=== PATIENT | female | born 1945 | race Caucasian/White ===

== ENCOUNTER 2017-11-05 16:36 | Emergency (ER) | payer OTHER ==
[~2017-11-05] VITALS: Ht 167.6 cm; Wt 163.3 kg
[~2017-11-05 16:36] MED LIST: CITA10TA9 PO; LISI1TAB13 PO
--- NOTE | 2017-11-05 16:45 | NUR ---
72 yo female bib ra. patient is alert and oriented, states she had an anxiety attack, became dizzy then called 911. patient states she is a little dizzy at this time, still a little anxious. patient ambulated to er bed with steady gait, skin warm and dry, resp even and unlabored. awaiting orders from provider
[2017-11-05] MEDS ORDERED: LORAZEPAM INJ 2 MG/ML VIAL ONE (16:51)
[2017-11-05] MEDS ORDERED: CLONIDINE HCL 0.1 MG TABLET ONE (16:52)
[2017-11-05] MEDS ORDERED: CLONIDINE HCL 0.1 MG TABLET PO ONE (17:00)
[2017-11-05] MEDS ORDERED: LORAZEPAM INJ 2 MG/ML VIAL IV ONE (17:00)
[2017-11-05 17:05] LABS: BASOPHILS # (AUTO) 0.1 /CMM (0.0-0.2); BASOPHILS % (AUTO) 0.7 % (0.0-2.0); EOSINOPHILS % (AUTO) 3.6 % (0.0-6.0); HEMATOCRIT 42 % (33-45); HEMOGLOBIN 13.9 g/dL (11.5-14.8); LYMPHOCYTES # (AUTO) 2.6 /CMM (0.8-4.8); LYMPHOCYTES % (AUTO) 34.3 % (20.0-44.0); MEAN CORPUSCULAR HEMOGLOBIN 28 PG (26.0-33.0); MEAN CORPUSCULAR HGB CONC 34 g/dl (31.0-36.0); MEAN CORPUSCULAR VOLUME 85 fL (82-100); MONOCYTES # (AUTO) 0.5 /CMM (0.1-1.30); MONOCYTES % (AUTO) 6.1 % (2.0-12.0); NEUTROPHILS % (AUTO) 55.3 % (43.0-81.0); PLATELET COUNT (AUTO) 256 /CMM (150-450); RDW COEFFICIENT OF VARIATION 12.7 (11.5-15.0); RED BLOOD CELL COUNT(AUTO) 4.91 MIL/uL (4.0-5.2); WHITE BLOOD COUNT (AUTO) 7.4 K/uL (4.3-11.0)
--- NOTE | 2017-11-05 17:06 | NUR ---
20g right fa iv started, blood sample obtained and sent to lab. medicated pt as ordered
[2017-11-05 17:16] LABS: CARBON DIOXIDE 27 mmol/L (21-32); CHLORIDE 106 mmol/L (98-107); CREATININE 0.8 mg/dL (0.6-1.3); GLUCOSE 119 mg/dL (74-106); POTASSIUM 4.2 mmol/L (3.5-5.1); SODIUM SERUM 139 mmol/L (136-145); UREA NITROGEN, BLOOD 11 mg/dL (7-18)
[2017-11-05 17:19] LABS: INR 1.04 (0.85-1.15)
[2017-11-05 17:24] LABS: TROPONIN I < 0.017 ng/mL (0.00-0.056)
--- NOTE | 2017-11-05 18:03 | NUR ---
Patient discharged to home in stable condition. Written and verbal after care instructions given. Patient verbalizes understanding of instruction.IV removed. Catheter intact and site benign. Pressure and 4x4 applied to site. No bleeding noted. pt ambulatory with a steady gait VITAL SIGNS WITHIN NORMAL LIMITS.
[2017-11-05 18:04] VITALS: BP 153/78
== END 2017-11-05 18:04 | disposition home or self-care (01) ==
LOC: ER 16:37
DX: I10 Essential (primary) hypertension (principal); F41.9 Anxiety disorder, unspecified; Z90.710 Acquired absence of both cervix and uterus
CPT/HCPCS: 36415; 71045; 80048; 84484; 85025; 85730; 93005; 96374; 99285; A4606; J2060; Z7610

== ENCOUNTER 2017-12-09 23:17 | Emergency (ER) | payer OTHER ==
[~2017-12-09] VITALS: Ht 154.9 cm; Wt 68.0 kg
[2017-12-09] MEDS ORDERED: hydrALAZINE HCL IV 20 MG VIAL IV ONE (23:30)
[2017-12-09] MEDS ORDERED: hydrALAZINE HCL IV 20 MG VIAL ONE (23:32)
--- NOTE | 2017-12-09 23:35 | NUR ---
Pt BIBRA C/O OF HBP AFTER NOT TAKING ATENOLOL AT HOME. PER Pt STATEMENT DID TAKE ATIVAN 0.5MG STAMP COLLECTOR. Pt IS A/OX4, VERBAL, ABLE TO MAKE NEEDS KNOWN. NO S/S OF ACUTE DISTRESS OR SOB NOTED. Pt IS AMBULATORY. ON MONITOR. RESPIRATIONS EVEN AND UNLABORED. SEEN BY MD. WILL CONTINUE TO MONITOR.
--- NOTE | 2017-12-09 23:40 | NUR ---
URINE COLLECTED. PICKED UP BY LAB
--- NOTE | 2017-12-09 23:46 | NUR ---
ORDERED MED GIVEN
[2017-12-09 23:47] LABS: BASOPHILS # (AUTO) 0.1 /CMM (0.0-0.2); BASOPHILS % (AUTO) 0.7 % (0.0-2.0); EOSINOPHILS % (AUTO) 5.3 % (0.0-6.0); HEMATOCRIT 43 % (33-45); HEMOGLOBIN 13.6 g/dL (11.5-14.8); LYMPHOCYTES # (AUTO) 2.9 /CMM (0.8-4.8); LYMPHOCYTES % (AUTO) 33.3 % (20.0-44.0); MEAN CORPUSCULAR HGB CONC 32 g/dl (31.0-36.0); MEAN CORPUSCULAR VOLUME 87 fL (82-100); MONOCYTES # (AUTO) 0.6 /CMM (0.1-1.30); MONOCYTES % (AUTO) 7.6 % (2.0-12.0); NEUTROPHILS # (AUTO) 4.6 /CMM (1.8-8.9); NEUTROPHILS % (AUTO) 53.1 % (43.0-81.0); PLATELET COUNT (AUTO) 253 /CMM (150-450); RDW COEFFICIENT OF VARIATION 13.5 (11.5-15.0); RED BLOOD CELL COUNT(AUTO) 4.96 MIL/uL (4.0-5.2); WHITE BLOOD COUNT (AUTO) 8.6 K/uL (4.3-11.0)
--- NOTE | 2017-12-09 23:56 | NUR ---
EKG BEING DONE AT BEDSIDE
[2017-12-10 00:08] LABS: CALCIUM, SERUM 8.8 mg/dL (8.5-10.1); CARBON DIOXIDE 27 mmol/L (21-32); CHLORIDE 105 mmol/L (98-107); CREATININE 0.7 mg/dL (0.6-1.3); GLUCOSE 124 mg/dL (74-106); POTASSIUM 3.9 mmol/L (3.5-5.1); SODIUM SERUM 141 mmol/L (136-145); UREA NITROGEN, BLOOD 12 mg/dL (7-18)
--- NOTE | 2017-12-10 01:06 | NUR ---
Patient discharged to home in stable condition. Written and verbal after care instructions given. Patient verbalizes understanding of instruction. Copies of labs provided per pt request. Patient left on foot walking with steady gait. No s/s of acute distress or sob noted. Pt left with .
[2017-12-10 01:10] VITALS: BP 169/84
== END 2017-12-10 01:14 | disposition home or self-care (01) ==
LOC: ER 23:19
DX: I16.0 Hypertensive urgency (principal); F41.9 Anxiety disorder, unspecified; Z90.710 Acquired absence of both cervix and uterus; Z96.641 Presence of right artificial hip joint; Z79.899 Other long term (current) drug therapy
CPT/HCPCS: 36415; 80048-TC; 85025-TC; A4606; J0360; Z7610

== ENCOUNTER 2019-02-19 17:07 | Emergency (ER) | payer OTHER ==
[~2019-02-19] VITALS: Ht 154.9 cm; Wt 70.3 kg
[~2019-02-19 17:07] MED LIST changes: -LISI1TAB13 PO; +LISI1TAB29 PO
--- NOTE | 2019-02-19 17:31 | NUR ---
[id number] FRM HOME, HIGH BLOOD PRESSURE SINCE THIS MORNING. C/O [employer]. PT AAOX4, VSS. DENIES CP, SOB, DIZZINESS, N/V, WEAKNESS @ THIS TIME. PT SEEN & EVAL'D BY DR. CELESTIN. PLACED ON [employer], NSR. WILL CONT TO MONITOR.
[2019-02-19 17:32] LABS: BASOPHILS # (AUTO) 0.1 /CMM (0.0-0.2); BASOPHILS % (AUTO) 0.6 % (0.0-2.0); EOSINOPHILS % (AUTO) 2.1 % (0.0-6.0); HEMATOCRIT 46 % (33-45); HEMOGLOBIN 15.4 g/dL (11.5-14.8); LYMPHOCYTES # (AUTO) 1.7 /CMM (0.8-4.8); LYMPHOCYTES % (AUTO) 17.9 % (20.0-44.0); MEAN CORPUSCULAR HGB CONC 33 g/dl (31.0-36.0); MEAN CORPUSCULAR VOLUME 84 fL (82-100); MONOCYTES # (AUTO) 0.5 /CMM (0.1-1.30); MONOCYTES % (AUTO) 5.1 % (2.0-12.0); NEUTROPHILS % (AUTO) 74.3 % (43.0-81.0); PLATELET COUNT (AUTO) 251 /CMM (150-450); RED BLOOD CELL COUNT(AUTO) 5.46 MIL/uL (4.0-5.2); WHITE BLOOD COUNT (AUTO) 9.4 K/uL (4.3-11.0)
[2019-02-19 17:39] LABS: CALCIUM, SERUM 9.8 mg/dL (8.5-10.1); CARBON DIOXIDE 28 mmol/L (21-32); CHLORIDE 102 mmol/L (98-107); CREATININE 0.7 mg/dL (0.6-1.3); GLUCOSE 134 mg/dL (74-106); POTASSIUM 3.8 mmol/L (3.5-5.1); SODIUM SERUM 141 mmol/L (136-145); UREA NITROGEN, BLOOD 11 mg/dL (7-18)
[2019-02-19 17:52] LABS: B-TYPE NATRIURETIC PEPTIDE 305 PG/ML (0-125)
[2019-02-19] MEDS ORDERED: CLONIDINE HCL 0.1 MG TABLET ONE (18:13)
[2019-02-19] MEDS ORDERED: CLONIDINE HCL 0.1 MG TABLET PO ONE (18:30)
[2019-02-19 19:45] VITALS: BP 167/91
--- NOTE | 2019-02-19 19:45 | NUR ---
Patient discharged to home in stable condition. Written and verbal after care instructions given. Patient verbalizes understanding of instruction.IV removed. Catheter intact and site benign. Pressure and 4x4 applied to site. No bleeding noted.
== END 2019-02-19 19:46 | disposition home or self-care (01) ==
LOC: ER 17:08
DX: I10 Essential (primary) hypertension (principal); F41.9 Anxiety disorder, unspecified; Z90.710 Acquired absence of both cervix and uterus; Z96.641 Presence of right artificial hip joint; Z79.899 Other long term (current) drug therapy
CPT/HCPCS: 36415; 71045-TC; 80048-TC; 83880; 84484-TC; 85025-TC

== ENCOUNTER 2021-12-13 15:39 | Emergency (ER) | payer MEDICARE, BC ==
[~2021-12-13] VITALS: Ht 154.9 cm; Wt 67.1 kg
--- NOTE | 2021-12-13 15:55 | NUR ---
ach or dizzness RECEIVED PT 76 YRS FEMALE CAME BY LIBIA FROM HOME C/O ANXIOUS AND Elevated bp no chest pain no head
[2021-12-13] MEDS ORDERED: CLONIDINE HCL 0.1 MG TABLET PO ONE (16:00)
[2021-12-13] MEDS ORDERED: LORAZEPAM INJ 2 MG/ML VIAL IV ONE (16:00)
[2021-12-13] MEDS ORDERED: hydrALAZINE HCL IV 20 MG VIAL IV ONE (16:00)
--- NOTE | 2021-12-13 16:00 | NUR ---
seen by DR. WORLEY
[2021-12-13] MEDS ORDERED: hydrALAZINE HCL IV 20 MG VIAL ONE (16:18)
[2021-12-13] MEDS ORDERED: CLONIDINE HCL 0.1 MG TABLET ONE (16:18)
[2021-12-13] MEDS ORDERED: LORAZEPAM INJ 2 MG/ML VIAL ONE (16:19)
--- NOTE | 2021-12-13 16:20 | NUR ---
INSERTED ANGO CATHETER % 20 ON RT AC blood drow and sent to lab
[2021-12-13 16:29] LABS: BASOPHILS # (AUTO) 0.1 K/uL (0.0-0.2); BASOPHILS % (AUTO) 0.6 % (0.0-2.0); EOSINOPHILS % (AUTO) 2.6 % (0.0-6.0); HEMATOCRIT 39 % (33-45); HEMOGLOBIN 13.4 g/dL (11.5-14.8); LYMPHOCYTES # (AUTO) 2.1 K/uL (0.8-4.8); LYMPHOCYTES % (AUTO) 22.7 % (20.0-44.0); MEAN CORPUSCULAR HGB CONC 34 g/dl (31.0-36.0); MEAN CORPUSCULAR VOLUME 84 fL (82-100); MONOCYTES # (AUTO) 0.5 K/uL (0.1-1.30); MONOCYTES % (AUTO) 5.6 % (2.0-12.0); NEUTROPHILS # (AUTO) 6.3 K/uL (1.8-8.9); NEUTROPHILS % (AUTO) 68.5 % (43.0-81.0); PLATELET COUNT (AUTO) 256 K/uL (150-450); RED BLOOD CELL COUNT(AUTO) 4.67 MIL/uL (4.0-5.2); WHITE BLOOD COUNT (AUTO) 9.2 K/uL (4.3-11.0)
--- NOTE | 2021-12-13 16:35 | NUR ---
pt refused antihypertention tx order by DR. GUPTA PT TOOK CLONIBIN 0.1MG PO AT HOME ONE HR AGO dr. gupta at bed side expplain to pt prpcedure and requsteded recived 0.5mg dr Jonh gupta at bded side
[2021-12-13 16:37] LABS: CALCIUM, SERUM 9.2 mg/dL (8.5-10.1); CREATININE 0.9 mg/dL (0.6-1.3); POTASSIUM 3.8 mmol/L (3.5-5.1)
[2021-12-13] MEDS ORDERED: LOSA1TAB36 PO (17:29)
[2021-12-13] MEDS ORDERED: ROSU5TAB13 PO (17:29)
[2021-12-13] MEDS ORDERED: THYR15TA PO (17:29)
[2021-12-13] MEDS ORDERED: MIRT-91 PO (17:29)
[2021-12-13] MEDS ORDERED: ATEN25TA PO (17:29)
--- NOTE | 2021-12-13 18:05 | NUR ---
Haily allen in [facility] - 12/13/21 at 1819 by [email or web address] pt wating for ari in wating room
--- NOTE | 2021-12-13 18:06 | NUR ---
Patient discharged to home in stable condition. Written and verbal after care instructions given. Patient verbalizes understanding of instruction.
--- NOTE | 2021-12-13 18:10 | NUR ---
pt wating for doughter in wating room
[2021-12-13 18:17] VITALS: BP 128/68
== END 2021-12-13 18:20 | disposition home or self-care (01) ==
LOC: ER 15:41
DX: I10 Essential (primary) hypertension (principal); F41.0 Panic disorder [episodic paroxysmal anxiety]; F41.9 Anxiety disorder, unspecified; Z96.641 Presence of right artificial hip joint; Z90.710 Acquired absence of both cervix and uterus; Z79.899 Other long term (current) drug therapy
CPT/HCPCS: 99285; 96374; 71045; 93005 ×2; 85025; 80048; 36415; 84484; J2060; A6403; J0360